=== PATIENT | male | born 1980 | race Caucasian/White ===

== ENCOUNTER 2024-02-23 05:12 | Emergency (ER) | payer SELFPAY ==
[2024-02-23 05:15] VITALS: BP 150/100
--- NOTE | 2024-02-23 06:52 | ED.GENMED ---
History of Present Illness
General
Chief Complaint: Skin Problem
Source: patient
Exam Limitations: none
Time Seen by Provider: 02/23/24 06:37
Travel History
Have you had any contact with someone who has COVID-19?: No
Do you have any symptoms of coronavirus? Fever > 100 degrees, chills, cough, shortness of breath, sore throat, loss of taste or smell, muscle aches, or headache?: No
History of Present Illness
History of Present Illness:
Somewhat painful but itchy rash to the buttock for about a week and a half. Has been trying steroid and antifungal creams without success. No systemic symptoms. Also points to a small area possibly on his left leg. Patient HIV positive. T4
counts have been under control.
Review of Systems
Review of Systems
All Other Systems: Not applicable
Constitutional: Denies fever or chills
Phy Exam
Physical Exam
Physical Exam:
General: Nontoxic appearing in no distress. Nontoxic no respiratory distress
Skin: Warm and dry, 2 small discrete approximately 1 cm areas of induration to the left buttock. No drainage no obvious abscess. No central clearing. Most suspicious of a local bacterial etiology.
Neuro: Alert, nontoxic, grossly nonfocal
Psychiatric: Good eye contact and appropriate
Musculoskeletal: Within normal limits
Course
Vital Signs
Initial and Last Documented VS:
Initial Vital Signs
Temp Pulse Resp BP Pulse Ox
97.5 F 90 22 150/100 98
02/23/24 05:15 02/23/24 05:15 02/23/24 05:15 02/23/24 05:15 02/23/24 05:15
Last Documented Vital Signs
Temp Pulse Resp BP Pulse Ox
97.5 F 90 22 150/100 98
02/23/24 05:15 02/23/24 05:15 02/23/24 05:15 02/23/24 05:15 02/23/24 05:15
MDM/Problems Addressed
Differential Diagnosis Includes:
Nontoxic rash to the buttock. Discrete. Doubt fungal. Possibly bacterial. No abscess. Will try mupirocin steroid cream and follow-up
*Critical Care Note
Total Time (30-74mins, 75-104mins- exclusive of procedures): Not Applicable
ED Attending Note
-
Portions of this chart may have been created with voice recognition software.� Occasional wrong word or��sound alike� substitutions may have occurred due to the inherent limitations of voice recognition software.
Discharge Plan
Departure
Patient Disposition: Home (Routine Discharge)
Date of Disposition: 02/23/24
Time of Disposition: 06:52
Patient with high blood pressure during this ER visit?: Yes
Discharge Problem:
Nonspecific rash
Instructions: Skin Rash (DC), BLOOD PRESSURE
Prescriptions:
New
mupirocin 2 % ointment
1 applic topical TID Qty: 50 0RF
Referrals:
UNKNOWN - PT DOES,NOT KNOW [Family Provider] -
Activity Restrictions/Additional Instructions:
Apply cream 2-3 times per day
Can also use steroid cream
Recheck if rash persists, spreads, fever or any other systemic symptoms
Get rechecked by your primary physician in the next 3 to 5 days
Interventions
Interventions:
*Risk Screen - Suicide Last Done: 02/23/24 05:15
*Neglect/Abuse Screening Last Done: 02/23/24 05:15
*Nursing Disposition Last Done: 02/23/24 06:59
ED-Skin Assessment Last Done: 02/23/24 06:59
Discharge Date and Time
Discharge Date/Time: 02/23/24 07:01
Print Language: [id number]
== END 2024-02-23 07:01 | disposition home or self-care (01) ==
LOC: EMR 05:12
PROVIDERS: EMERGENCY PHYSICIAN Emergency Medicine
DX: R21 Rash and other nonspecific skin eruption (principal); L29.9 Pruritus, unspecified; Z21 Asymptomatic human immunodeficiency virus [HIV] infection status; R03.0 Elevated blood-pressure reading, without diagnosis of hypertension; Z88.5 Allergy status to narcotic agent
CPT/HCPCS: 99283